=== PATIENT | female | born 1995 | race Two or more races ===

== ENCOUNTER 2022-11-13 22:03 | Emergency (ER) | payer OTHER ==
[~2022-11-13] VITALS: Ht 177.8 cm; Wt 60.3 kg
[2022-11-13] MEDS ORDERED: BUTALB-ACETAMI1 EAC2 PO (23:33)
== END 2022-11-13 23:58 | disposition home or self-care (01) ==
LOC: ER 22:03
DX: M62.838 Other muscle spasm (principal); R51.9 Headache, unspecified

== ENCOUNTER 2022-12-13 08:32 | Emergency (ER) | payer OTHER ==
[~2022-12-13] VITALS: Ht 170.2 cm; Wt 60.8 kg
[~2022-12-13 08:32] MED LIST: BUTALB-ACETAMI1 EAC2 PO
[2022-12-13] MEDS ORDERED: MUCINEX DM ER1 EAC1 PO (12:11)
== END 2022-12-13 12:21 | disposition home or self-care (01) ==
LOC: ER 08:32
DX: B34.9 Viral infection, unspecified (principal); Z20.822 Contact with and (suspected) exposure to COVID-19

== ENCOUNTER 2023-09-18 09:15 | Emergency (ER) | payer OTHER ==
[~2023-09-18] VITALS: Ht 170.2 cm; Wt 59.9 kg
[~2023-09-18 09:15] MED LIST changes: +MUCINEX DM ER1 EAC1 PO
[2023-09-18 10:42] LABS: HEMOGLOBIN 11.6 g/dL (12.0-15.00); MEAN CORPUSCULAR HEMOGLOBIN 26.6 pg (27.00-32.0); MEAN CORPUSCULAR HGB CONC 33.2 g/dl (32.0-36.0); RED BLOOD COUNT 4.38 M/uL (4.00-6.00); RED CELL DISTRIBUTION WIDTH 16.1 % (11.5-14.5)
[2023-09-18] MEDS ORDERED: TUSNEL LIQUID178 ML PO (11:27)
[2023-09-18] MEDS ORDERED: PAXLOVID 300-11 EACH PO (11:27)
[2023-09-18] MEDS ORDERED: DOLOGEN CAPLET1 EACH PO (11:27)
[2023-09-18 11:38] LABS: PLATELET COUNT 232 K/uL (150-450)
== END 2023-09-18 12:46 | disposition home or self-care (01) ==
LOC: ER 09:15
PROVIDERS: General Practice
DX: U07.1 COVID-19 (principal); B34.8 Other viral infections of unspecified site